=== PATIENT | female | born 1985 | race Two or more races ===

== ENCOUNTER 2016-08-09 08:02 | Emergency (ER) | payer OTHER ==
--- NOTE | ~2016-08-09 | CR253 ---
[facility] A Service of [facility] RADIOLOGY TEXT RESULTS PATIENT: LINCOLN GARNER LOCATION: [facility] : 81 UNIT #: [id number] AGE: [address]: Miller Matias MD SEX: F ORDER DR: [id number] [facility] [address] [place], [place] [address] [id number] E MR#: [id number] #: [id number] NAME: LINCOLN GARNER. : 1985 SEX: F STUDY DATE/TIME: 08/09/2016 7:05 UNIT: [facility] ROOM: STUDY DESCRIPTION: CR Tibia and Fibula 2 Views Rt Attending Physician: Miller Matias M.D. Ordering Physician: Miller Matias M.D. Primary Care Physician: Lucy Herrera M.D. MEDICAL IMAGING REPORT This report is preliminary unless electronic signature is present EXAM Right tibia and fibula HISTORY Pain in right tibia and fibula for 5 days. No known injury. FINDINGS There is no evidence of fracture, dislocation, or radiopaque foreign body. IMPRESSION Normal tibia and fibula. Dictated by... Santos Fuentes M.D. THIS IS AN ELECTRONICALLY VERIFIED REPORT Santos Fuentes M.D. at 08/09/2016 1:15 PM Rogelio TD: 08/09/2016 10:33 JOB #: [id number] MEDICAL IMAGING REPORT COPY
== END 2016-08-09 09:42 | disposition home or self-care (01) ==
LOC: CED 08:02
DX: S80.851A Superficial foreign body, right lower leg, initial encounter (principal); W45.8XXA Other foreign body or object entering through skin, initial encounter; Y92.9 Unspecified place or not applicable
CPT/HCPCS: 73590; 99283; J1885